=== PATIENT | female | born 1980 | race African-American/Black ===

== ENCOUNTER 2025-02-06 06:45 | Day surgery (SDC) | payer OTHER ==
[~2025-02-06] VITALS: Ht 170.2 cm; Wt 152.3 kg
[~2025-02-06 06:45] MED LIST: ATOR10TA PO; LOSA-381 PO; RIVA20TA PO; SEMA0.5P SQ; SODIUM CHLORIDE 0.9% 1,000 ML ONE
[2025-02-06] MEDS ORDERED: PROPOFOL 1% 20 ML VIAL IVP ONE (06:46)
[2025-02-06] MEDS ORDERED: PROPOFOL 1% ISO-OSM 1000 MG/100 ML BOTTLE IV ONE (06:46)
[2025-02-06] MEDS: SODIUM CHLORIDE 0.9% 1,000 ML IV ONE (07:33)
== END 2025-02-06 10:10 | disposition home or self-care (01) ==
LOC: SURGERY 06:45
PROVIDERS: ATTEND Internal Medicine Gastroenterology
DX: K92.1 Melena (principal); K64.8 Other hemorrhoids; E66.01 Morbid (severe) obesity due to excess calories; F17.210 Nicotine dependence, cigarettes, uncomplicated; I10 Essential (primary) hypertension; I48.91 Unspecified atrial fibrillation; Z68.43 Body mass index [BMI] 50.0-59.9, adult; Z98.890 Other specified postprocedural states; Z88.2 Allergy status to sulfonamides
CPT/HCPCS: 45378; 84703; 36415; J2704 ×2; J7030